=== PATIENT | male | born 1960 | race African-American/Black ===

== ENCOUNTER 2017-01-22 20:14 | Emergency (ER) | payer MEDICAID ==
[~2017-01-22] VITALS: Ht 167.6 cm; Wt 63.5 kg
[2017-01-22] MEDS: Dicyclomine HCl 10mg/5ml oral soln ORAL ONE (20:36)
[2017-01-22] MEDS: Sodium Chloride 500ML 500 ML IV ONE (20:36)
[2017-01-22] MEDS: Lidocaine 2% Visc 15ml soln ORAL ONE (20:36)
[2017-01-22] MEDS: Mylanta II UD 30ml ORAL ONE (20:36)
--- NOTE | 2017-01-22 20:36 | Emergency Room Report ---
History of Present Illness General Chief Complaint: Abdominal Pain Source: Patient, EMS Present Illness HPI 56-year-old male, history of schizophrenia, seizure, presenting with abdominal pain for one day. Patient pointing to his abdomen and states that it is all over. Constant, sharp, nausea vomiting. Denies diarrhea. Denies any black or bloody stools Patient states that he had this abdominal pain about a week ago, went to [facility] per the patient and states that he was discharged, also stated that he was told that he "needed surgery" Denies any fever chills chest pain shortness of breath. Allergies: Coded Allergies: No Known Allergies (Unverified , 01/22/17) Patient History Past Medical History: see triage record Past Surgical History: none Pertinent Family History: none Reviewed Nursing Documentation: PMH: Agreed, PSxH: Agreed Nursing Documentation-PMH History Of Psychiatric Problem: Yes - schizopherenia Hx Seizures: Yes Review of Systems All Other Systems: negative except mentioned in HPI Physical Exam Vital Signs Date Time Temp Pulse Resp B/P (MAP) Pulse Ox O2 Delivery O2 Flow Rate FiO2 01/22/17 20:07 76 18 142/92 99 Room Air Sp02 EP Interpretation: reviewed, normal General Appearance: alert, GCS 15, non-toxic, moderate distress, other Head: normocephalic, atraumatic Eyes: bilateral eye normal inspection, bilateral eye PERRL, bilateral eye EOMI ENT: normal ENT inspection, normal pharynx, normal voice, moist mucus membranes Neck: normal inspection, full range of motion, supple Respiratory: normal inspection, lungs clear, normal breath sounds, no respiratory distress, no retraction, no wheezing, speaking full sentences, chest symmetrical Cardiovascular #1: normal inspection, regular rate, rhythm, normal capillary refill Cardiovascular #2: 2+ radial (R), 2+ radial (L) Gastrointestinal: other - Generalized tenderness without guarding or rebound Musculoskeletal: normal inspection, back normal, normal range of motion, non- tender Neurologic: normal inspection, alert, oriented x3, responsive, motor strength/ tone normal, sensory intact, normal gait, speech normal Psychiatric: normal inspection, judgement/insight normal, memory normal Skin: normal inspection, normal color, no rash, warm/dry, well hydrated, normal turgor Medical Decision Making ER Course 56-year-old male with abdominal pain Differential Diagnosis: Gastritis, gastroenteritis, cholecystitis, appendicitis, diverticulitis, SBO, mesenteric ischemia, cardiac, UTI/pyelo Plan: Basic labs, ua, ekg pain control, IVF CT abdopelvis ER course: Our staff called [facility] to attempt to obtain records such as CAT scan, but states that he never went to that hospital Disposition: Signed out patient to Dr. Arias 56 yo M with abd pain -pending CT abdo pelvis Please note that this Emergency Department Report was dictated using [employer] machine operator technology software, occasionally this can lead to erroneous entry secondary to interpretation by the dictation equipment EKG Diagnostic Results EP Interpretation: Yes Rate: normal Rhythm: NSR ST Segments: No acute changes ASA given to patient: No Rhythm Strip EP Interpretation: Yes Rate: 87 Rhythm: NSR, no PVCs, no ectopy Laboratory Tests Test 01/22/17 20:28 White Blood Count 8.7 K/UL (4.8-10.8) Red Blood Count 5.01 M/UL (4.70-6.10) Hemoglobin 14.9 G/DL (14.2-18.0) Hematocrit 45.9 % (42.0-52.0) Mean Corpuscular Volume 92 FL (80-99) Mean Corpuscular Hemoglobin 29.8 PG (27.0-31.0) Mean Corpuscular Hemoglobin Concent 32.5 G/DL (32.0-36.0) Red Cell Distribution Width 13.0 % (11.6-14.8) Platelet Count 320 K/UL (150-450) Mean Platelet Volume 6.1 FL (6.5-10.1) L Neutrophils (%) (Auto) 73.6 % (45.0-75.0) Lymphocytes (%) (Auto) 17.0 % (20.0-45.0) L Monocytes (%) (Auto) 5.5 % (1.0-10.0) Eosinophils (%) (Auto) 3.2 % (0.0-3.0) H Basophils (%) (Auto) 0.7 % (0.0-2.0) Sodium Level 147 MMOL/L (136-145) H Potassium Level 3.9 MMOL/L (3.5-5.1) Chloride Level 108 MMOL/L (98-107) H Carbon Dioxide Level 31 MMOL/L (21-32) Anion Gap 8 mmol/L (5-15) Blood Urea Nitrogen 18 mg/dL (7-18) Creatinine 1.1 MG/DL (0.55-1.30) Estimate Glomerular Filtration Rate > 60 mL/min (>60) Glucose Level 93 MG/DL (74-106) Calcium Level 9.9 MG/DL (8.5-10.1) Total Bilirubin 0.7 MG/DL (0.2-1.0) Aspartate Amino Transferase (AST) 41 U/L (15-37) H Alanine Aminotransferase (ALT) 57 U/L (12-78) Alkaline Phosphatase 121 U/L (46-116) H Troponin I 0.002 ng/mL (0.000-0.056) Total Protein 7.4 G/DL (6.4-8.2) Albumin 3.7 G/DL (3.4-5.0) Globulin 3.7 g/dL Albumin/Globulin Ratio 1.0 (1.0-2.7) Lipase 116 U/L (73-393) Serum Alcohol < 3 mg/dL Last Vital Signs Date Time Temp Pulse Resp B/P (MAP) Pulse Ox O2 Delivery O2 Flow Rate FiO2 01/22/17 20:07 76 18 142/92 99 Room Air Nany Bai M.D. Jan 22, 2017 20:36
[2017-01-22 20:43] VITALS: BP 123/79
[2017-01-22 21:08] LABS: BASOPHILS % (AUTO) 0.7 % (0.0-2.0); EOSINOPHILS % (AUTO) 3.2 % (0.0-3.0); MEAN CORPUSCULAR HEMOGLOBIN 29.8 PG (27.0-31.0); MEAN CORPUSCULAR HGB CONC 32.5 G/DL (32.0-36.0); MEAN CORPUSCULAR VOLUME 92 FL (80-99); MEAN PLATELET VOLUME 6.1 FL (6.5-10.1); MONOCYTES % (AUTO) 5.5 % (1.0-10.0); NEUTROPHILS % (AUTO) 73.6 % (45.0-75.0); PLATELET COUNT 320 K/UL (150-450); RED BLOOD COUNT 5.01 M/UL (4.70-6.10); WHITE BLOOD COUNT 8.7 K/UL (4.8-10.8)
[2017-01-22 21:09] LABS: ANION GAP 8 mmol/L (5-15); CALCIUM 9.9 MG/DL (8.5-10.1); CARBON DIOXIDE 31 MMOL/L (21-32); CHLORIDE 108 MMOL/L (98-107); CREATININE 1.1 MG/DL (0.55-1.30); GLOMERULAR FILTRATION RATE > 60 mL/min (>60); POTASSIUM 3.9 MMOL/L (3.5-5.1); SODIUM 147 MMOL/L (136-145)
[2017-01-22 21:11] LABS: ALANINE AMINOTRANSFERASE 57 U/L (12-78); ASPARTATE AMINO TRANSFERASE 41 U/L (15-37); LIPASE 116 U/L (73-393); TOTAL PROTEIN 7.4 G/DL (6.4-8.2)
[2017-01-22] MEDS: HYDROmorphone 1mg/ml Carpuject IVP ONE (22:15)
[2017-01-23] MEDS ORDERED: D5 1/2NS w/KCl 20mEq 1,000 ML IV SCH (00:21)
[2017-01-23] MEDS ORDERED: Metoclopramide 10mg/2ml Inj IVP PRN (00:30)
[2017-01-23] MEDS ORDERED: Morphine Sulfate 2mg/ml Inj IVP PRN ×2 (00:30)
[2017-01-23] MEDS ORDERED: DiphenhydrAMINE 50mg/ml Inj IVP PRN (00:30)
[2017-01-23 00:40] VITALS: BP 123/79
--- NOTE | 2017-01-23 00:51 | Emergency Room Report ---
Physical Exam Vital Signs Date Time Temp Pulse Resp B/P (MAP) Pulse Ox O2 Delivery O2 Flow Rate FiO2 01/22/17 20:07 97.9 76 18 142/92 99 Room Air Medical Decision Making Diagnostic Impression: Primary Impression: SBO (small bowel obstruction) ER Course Patient was admitted for small bowel obstruction. I had discussed the case with Dr. Fernandez and Dr. Fierro, who was coming to see pt in the ER to discussed surgical options. Before that happen however, patient said he is leaving to go to another hospital. He claimed that we never gave him pain medication. I pointed out to him that he received 2 mg Dilaudid here. He received pain medication prior to CAT scan. He refused an NG tube. Patient is competent to make that decision to leave. He claimed that he has to get his car was parked on the street. I called the surgeon back to let him know about to come in. Patient will leave AMA. He refuse to sign the paperwork. Last Vital Signs Date Time Temp Pulse Resp B/P (MAP) Pulse Ox O2 Delivery O2 Flow Rate FiO2 01/22/17 20:43 97.9 83 26 123/79 100 Room Air Status: improved Disposition: AGAINST MEDICAL ADVICE Condition: Stable Referrals: NOT CHOSEN JOANNE/,REFERRING (PCP) WILBERT FORD M.D. Jan 23, 2017 00:51
--- NOTE | 2017-01-23 12:06 | Diagnostic Imaging Report ---
Indication: Abdominal pain Technique: Spiral acquisitions obtained through the abdomen and pelvis. No oral contrast utilized, per emergency room physician request No IV contrast utilized, per referring physician request.. Multiplanar reconstructions were generated. Total dose length product 562 mGycm. CTDIvol(s) 10.9 mGy. Dose reduction achieved using automated exposure control Comparison: The Findings: Exam is very limited, due to lack of enteric and IV contrast, asthenic body habitus limiting inherent soft tissue contrast, and soft tissue edema also limiting inherent soft tissue contrast. The appendix is only equivocally demonstrated, but no findings to suggest acute appendicitis are evident. There are dilated fluid-filled small bowel loops. There is suggestion of nondilated more distal small bowel loops, as well as some bowel loops with wall thickening in the right upper quadrant. There may also be nondilated proximal small bowel loops. No free or loculated intraperitoneal air or fluid is evident. Distal esophagus is unremarkable. Stomach is mildly distended. There is trace ascites fluid. No free intraperitoneal air. There are bilateral scrotal hydroceles. Lack of IV contrast limits assessment of the solid organs. The liver is grossly unremarkable. Gallbladder, bile ducts, pancreas, spleen, adrenals, kidneys are unremarkable. No retroperitoneal or mesenteric mass or adenopathy. No pelvic mass or adenopathy. The included lung bases demonstrate a subpleural 7 mm nodule in the right middle lobe. A small bulla or bleb is seen in the right lower lobe. There are some compressive atelectatic changes. The bones demonstrate degenerative spondylosis changes. Impression: Dilated fluid-filled small bowel loops with normal caliber small bowel loops, consistent with small bowel obstruction. Equivocal nondilated proximal small bowel loops as well, raising possibility of closed-loop obstruction Trace ascites Diffuse soft tissue edema 7 mm right middle lobe nodule. Recommend short interval followup CT in 6-12 months COPD changes Bilateral scrotal hydroceles Mild degenerative spondylosis This agrees with the preliminary interpretation provided overnight by [facility]. The CT scanner at [facility] is accredited by the [employer] and the scans are performed using protocols designed to limit radiation exposure to as low as reasonably achievable to attain images of sufficient resolution adequate for diagnostic evaluation.
--- NOTE | 2017-01-24 18:28 | Cardiology Report ---
APPROVED REPORT EKG Measurement Heart [id number] CO [id number] Normal sinus rhythm Possible Left atrial enlargement Septal infarct, age undetermined Abnormal ECG
== END 2017-01-23 00:40 | disposition left against medical advice (07) ==
LOC: EDBD 20:14 → EMR 22:20 → EDBEDREQ 01-23 00:15 → EMR 01-23 00:40
DX: K56.609 Unspecified intestinal obstruction, unspecified as to partial versus complete obstruction (principal); F20.9 Schizophrenia, unspecified; N43.3 Hydrocele, unspecified; Z86.69 Personal history of other diseases of the nervous system and sense organs
CPT/HCPCS: 36415; 74176; 80053; 80329; 83690; 84484; 85025; 93005; 96361; 96374; 96375; 99284; J1170; J2405; J7040